=== PATIENT | male | born 2005 | race Caucasian/White ===

== ENCOUNTER 2025-07-02 14:01 | Emergency (ER) | payer SELFPAY ==
[~2025-07-02] VITALS: Ht 172.7 cm; Wt 63.5 kg
[2025-07-02] MEDS ORDERED: MELOXICAM15 MG PO (14:19)
[2025-07-02] MEDS ORDERED: IBUPROFEN 800 MG TAB PO ONE (14:20)
== END 2025-07-02 14:41 | disposition home or self-care (01) ==
LOC: ED 14:01
DX: S09.90XA Unspecified injury of head, initial encounter (principal); W01.198A Fall on same level from slipping, tripping and stumbling with subsequent striking against other object, initial encounter; Y93.89 Activity, other specified; Y92.89 Other specified places as the place of occurrence of the external cause; Y99.8 Other external cause status